=== PATIENT | female | born 1950 | race Caucasian/White ===

== ENCOUNTER → 2016-10-09 15:45 | Outpatient (CLI) | payer MEDICARE, OTHER ==
[2014-02-03 02:39] VITALS: BMI 32.5
[~2016-10-09 15:45] MED LIST: ESTRACE1 MG PO; GLUCOPHAGE1000 MG PO; HYDROCODONE-APA1 TAB PO; LISINOPRIL2.5 MG PO; PRAVACHOL40 MG PO; PRINZIDE 10/12.1 TAB PO; ROBAXIN500 MG PO; RYTHMOL225 MG PO; SYNTHROID175 MCG PO; SYNTHROID200 MC1
== END | disposition home or self-care (01) ==
LOC: D.MRI 15:45
DX: S80.02XA Contusion of left knee, initial encounter (principal)

== ENCOUNTER → 2018-10-03 09:28 | Outpatient (CLI) | payer MEDICARE, OTHER ==
[2014-02-03 02:39] VITALS: BMI 32.5
== END | disposition home or self-care (01) ==
LOC: D.HCCARDIO 09:28
PROVIDERS: ATTEND Internal Medicine Cardiovascular Disease
DX: I48.91 Unspecified atrial fibrillation (principal)